=== PATIENT | male | born 1985 | race Caucasian/White ===

== ENCOUNTER 2018-03-23 11:37 | Inpatient (IN) | payer BC ==
[~2018-03-23] VITALS: Ht 170.2 cm; Wt 90.9 kg
--- NOTE | ~2018-03-23 | EC ---
PATIENT:CRISTINE COLES DATE OF SERVICE: 03/23/18 SEX: M MEDICAL RECORD: [id number] DATE OF : [birth year] LOCATION:D.M2 D.211 AGE OF PATIENT: 32 ADMISSION DATE: 03/23/18 REFERRING PHYSICIAN: INTERPRETING PHYSICIAN: NATALYA LÓPEZ MD ECHOCARDIOGRAM REPORT ECHO CHARGES 4 ECHO COMPLETE Date: 03/23/18 CLINICAL DIAGNOSIS: SOB, CP ECHOCARDIOGRAPHIC MEASUREMENTS (adult normal given) AC root (d.<3.7cm) 3.0 cm LV Septum d (<1.2 cm> 0.7 cm Valve Excursion 2.3 cm LV Septum (systole) 1.4 cm Left Atria (s.<4.0cm> 3.6 cm LVPW d(<1.2cm) 0.5 cm RV (d.<2.3cm) 3.1 cm LVPW (sytole) 1.0 cm LV diastole(<5.6CM) 5.3 cm MV E-F(>70mm/sec) cm LV systole 3.9 cm LVOT Diameter 2.1 cm MV exc.(>10mm) cm Est.ejection fraction (50-75%) % DOPPLER: LVIT cm/sec A 68 cm/sec E 92 cm/sec LA cm/sec RVSP 28.6 mmHg LVOT 121 cm/sec AOP1/2T m/s Asc. Ao 143 cm/sec RVOT 68 cm/sec RA cm/sec PA 75 cm/sec AV Gradient Peak 8.2 mmHg AV Mean 4.9 mmHg AV Area 3.3 cm MV Gradient Peak 3.8 mmHg MV Mean 1.9 mmHg MV Area cm COMMENTS: Linter Tender: Lorin SAUCEDALAVELLE LIDIA Film Editor: 1 Dr. López TAPE# PACS Pericardial Effusion N DATE OF SERVICE: 03/23/2018 ECHOCARDIOGRAM DATE OF SERVICE: 03/23/2018 FINDINGS: 1. Left ventricular chamber size is within normal limits. Left ventricular systolic function is normal. Overall ejection fraction estimated at 60%. 2. Left atrium is within normal limits. Right atrium and right ventricle ECHOCARDIOGRAM REPORT [id number] CRISTINE COLES chamber sizes are mildly dilated. 3. Valvular structures have normal structure and motion. 4. Doppler interrogation only reveals mild tricuspid regurgitation, no other valvular insufficiency or stenosis. Pulmonary systolic pressure is normal at 28 mmHg. 5. No evidence of pericardial effusion or left ventricular thrombus. TRANSINT:[id number] Voice Confirmation ID: [id number] DOCUMENT ID: [id number] NATALYA LÓPEZ MD at 1439 CC: [id number] DICTATION DATE: 03/24/18 1016 CANDY COUNTER CLERK: 03/24/18 1031 ADM IN [facility] [address] [id number]
[2018-03-23 12:06] LABS: BASOPHILS 0.2 % (0-2); EOSINOPHILS 0 % (0-7); HEMOGLOBIN 15.5 g/dL (13.5-17.5); IMMATURE GRANULOCYTES 0.1 % (0-5); LYMPHOCYTES 8.2 % (15-50); MCH 31.3 pg (26.0-34.0); MCHC 35.2 g/dL (31.0-37.0); MCV 88.7 fL (80.0-100.0); MEAN PLATELET VOLUME 9.8 fL (7.4-10.4); NEUTROPHILS 90.5 % (40-80); PLATELET COUNT 228 10x3/uL (130-400); RBC 4.96 10x6/uL (4.20-6.10); RDW 12.7 % (11.5-14.5); WBC 9.6 10x3/uL (4.8-10.8)
[2018-03-23 12:19] LABS: INR 1.07 (0.85-1.17); PROTIME 13.5 SECONDS (11.6-15.0)
[2018-03-23 12:21] LABS: ALBUMIN 4.4 g/dL (3.4-5.0); ALKALINE PHOSPHATASE 63 U/L (46-116); ALT (SGPT) 28 U/L (10-68); BILIRUBIN - TOTAL 0.51 mg/dL (0.2-1.3); CALC OSMOLALITY 273 mosm/kg (275-300); CARBON DIOXIDE 24.4 mmol/L (21.0-32.0); CHLORIDE - SERUM 100 mmol/L (98-107); CREATININE - SERUM 1.1 mg/dL (0.6-1.3); GLUCOSE 181 mg/dL (74-106); POTASSIUM - SERUM 4.4 mmol/L (3.5-5.1); PROTEIN - SERUM 7.5 g/dL (6.4-8.2); SODIUM 134 mmol/L (136-145); UREA NITROGEN 15 mg/dL (7-18); eGFR NON AFRICAN AMERICAN 83 mL/min (90-120)
[2018-03-23 12:36] LABS: D-DIMER-QUANTITATIVE < 0.27 ug/mLFEU (0.20-0.54)
[2018-03-23 15:24] VITALS: BP 127/69; Ht 170.2 cm; Wt 90.9 kg
[2018-03-23 15:53] VITALS: BP 136/71
[2018-03-23 23:50] VITALS: BP 135/79
[2018-03-24 05:15] LABS: BASOPHILS 0 % (0-2); EOSINOPHILS 0 % (0-7); HEMATOCRIT 44.7 % (42.0-54.0); HEMOGLOBIN 15.7 g/dL (13.5-17.5); IMMATURE GRANULOCYTES 0.3 % (0-5); LYMPHOCYTES 7.4 % (15-50); MCHC 35.1 g/dL (31.0-37.0); MCV 88.3 fL (80.0-100.0); MEAN PLATELET VOLUME 10.5 fL (7.4-10.4); MONOCYTES 3.8 % (2-11); NEUTROPHILS 88.5 % (40-80); PLATELET COUNT 273 10x3/uL (130-400); RBC 5.06 10x6/uL (4.20-6.10); RDW 12.7 % (11.5-14.5)
[2018-03-24 05:22] LABS: WBC 13.8 10x3/uL (4.8-10.8)
[2018-03-24 05:40] LABS: ALBUMIN 4.2 g/dL (3.4-5.0); ALKALINE PHOSPHATASE 61 U/L (46-116); ALT (SGPT) 28 U/L (10-68); BILIRUBIN - TOTAL 0.38 mg/dL (0.2-1.3); CALC OSMOLALITY 279 mosm/kg (275-300); CALCIUM 9.4 mg/dL (8.5-10.1); CHLORIDE - SERUM 103 mmol/L (98-107); CREATININE - SERUM 1.1 mg/dL (0.6-1.3); GLUCOSE 148 mg/dL (74-106); POTASSIUM - SERUM 4.1 mmol/L (3.5-5.1); PROTEIN - SERUM 7.5 g/dL (6.4-8.2); SODIUM 138 mmol/L (136-145); UREA NITROGEN 14 mg/dL (7-18); eGFR NON AFRICAN AMERICAN 83 mL/min (90-120)
[2018-03-24 07:09] VITALS: BP 127/75
[2018-03-24 09:04] VITALS: BP 127/58
[2018-03-24 11:26] VITALS: BP 119/64
[2018-03-24 15:47] VITALS: BP 129/56
[2018-03-24 22:05] VITALS: BP 113/67
[2018-03-25 04:30] LABS: BASOPHILS 0 % (0-2); EOSINOPHILS 0.1 % (0-7); HEMATOCRIT 42.9 % (42.0-54.0); HEMOGLOBIN 14.8 g/dL (13.5-17.5); IMMATURE GRANULOCYTES 0.3 % (0-5); LYMPHOCYTES 18.5 % (15-50); MCH 30.8 pg (26.0-34.0); MCHC 34.5 g/dL (31.0-37.0); MCV 89.4 fL (80.0-100.0); MEAN PLATELET VOLUME 10.2 fL (7.4-10.4); MONOCYTES 7.1 % (2-11); PLATELET COUNT 254 10x3/uL (130-400); RDW 12.8 % (11.5-14.5); WBC 10.9 10x3/uL (4.8-10.8)
[2018-03-25 05:02] LABS: ALBUMIN 3.7 g/dL (3.4-5.0); ALKALINE PHOSPHATASE 52 U/L (46-116); ALT (SGPT) 30 U/L (10-68); BILIRUBIN - TOTAL 0.49 mg/dL (0.2-1.3); CALC OSMOLALITY 275 mosm/kg (275-300); CALCIUM 9.1 mg/dL (8.5-10.1); CARBON DIOXIDE 27.3 mmol/L (21.0-32.0); CHLORIDE - SERUM 103 mmol/L (98-107); CREATININE - SERUM 1.2 mg/dL (0.6-1.3); GLUCOSE 107 mg/dL (74-106); POTASSIUM - SERUM 3.9 mmol/L (3.5-5.1); PROTEIN - SERUM 6.6 g/dL (6.4-8.2); SODIUM 138 mmol/L (136-145); UREA NITROGEN 13 mg/dL (7-18); eGFR NON AFRICAN AMERICAN 75 mL/min (90-120)
[2018-03-25 06:16] VITALS: BP 101/55
[2018-03-25 08:39] VITALS: BP 119/84
[2018-03-25] MEDS ORDERED: ELIQUIS5 MG PO (09:53)
[2018-03-25 10:47] VITALS: BP 98/44
[2018-03-25 12:19] LABS: ACLA - IGG AB 15 GPL U/mL (0-14); ACLA - IGM AB <9 MPL U/mL (0-12)
[2018-03-26 08:19] LABS: PROTEIN S - FREE 136 % (57-157); PROTEIN S - TOTAL 86 % (60-150)
[2018-03-26 09:18] LABS: LUPUS - INTERPRETATION Comment: (()); LUPUS - THROMBIN TIME 20.5 sec (0.0-23.0); LUPUS - dRVVT 31.5 sec (0.0-47.0); PTT-LA 41.6 sec (0.0-51.9)
[2018-03-26 11:21] LABS: PROTEIN S - FREE 138 % (57-157); PROTEIN S - FUNCTIONAL 120 % (63-140); PROTEIN S - TOTAL 87 % (60-150)
[2018-03-28 14:09] LABS: PROTEIN C - ANTIGEN 113 % (60-150); PROTEIN C - FUNCTIONAL 130 % (73-180)
[2018-03-30 03:12] LABS: FACTOR II DNA ANALYSIS Negative (())
== END 2018-03-25 13:25 | disposition home or self-care (01) | DRG 176 ==
LOC: D.ER 11:37 → D.EDHOLD 13:15 → D.M2 13:15
PROVIDERS: Emergency Medicine; Family Medicine; Internal Medicine Pulmonary Disease
DX: I26.99 Other pulmonary embolism without acute cor pulmonale (principal); Z87.820 Personal history of traumatic brain injury

== ENCOUNTER 2018-08-04 09:37 | Emergency (ER) | payer BC ==
[~2018-08-04] VITALS: Ht 170.2 cm; Wt 90.9 kg
[~2018-08-04 09:37] MED LIST: ELIQUIS5 MG PO
[2018-08-04 09:43] VITALS: Ht 170.2 cm; Wt 90.9 kg
[2018-08-04] MEDS ORDERED: HYDROCODON-ACE1 EA10 PO (10:36)
[2018-08-04] MEDS ORDERED: CYCLOBENZAPRINE10 MG PO (10:36)
[2018-08-04 11:48] VITALS: BP 125/77
== END 2018-08-04 11:45 | disposition home or self-care (01) ==
LOC: D.ER 09:37
DX: M54.5 Low back pain (principal)

== ENCOUNTER → 2018-08-12 10:04 | Outpatient (CLI) | payer BC ==
[2018-08-04 09:43] VITALS: BMI 31.4
[~2018-08-12 10:04] MED LIST changes: +CYCLOBENZAPRINE10 MG PO; +HYDROCODON-ACE1 EA10 PO
== END | disposition home or self-care (01) ==
LOC: D.MRI 10:04
DX: M54.5 Low back pain (principal)

== ENCOUNTER 2018-09-25 22:08 | Emergency (ER) | payer BC ==
[~2018-09-25] VITALS: Ht 185.4 cm; Wt 95.5 kg
[2018-09-25 22:12] VITALS: Ht 185.4 cm; Wt 95.5 kg
[2018-09-25 23:04] VITALS: BP 136/78
== END 2018-09-25 23:03 | disposition home or self-care (01) ==
LOC: D.ER 22:08
DX: S01.01XA Laceration without foreign body of scalp, initial encounter (principal); W22.8XXA Striking against or struck by other objects, initial encounter; Y93.89 Activity, other specified; Y92.89 Other specified places as the place of occurrence of the external cause

== ENCOUNTER 2019-06-30 09:05 | Emergency (ER) | payer MEDICAID ==
[~2019-06-30] VITALS: Ht 185.4 cm; Wt 90.9 kg
[2019-06-30 09:14] VITALS: Ht 185.4 cm; Wt 90.9 kg
[2019-06-30 09:33] LABS: BASOPHILS 0.3 % (0-2); EOSINOPHILS 0.5 % (0-7); HEMATOCRIT 44.9 % (42.0-54.0); HEMOGLOBIN 15.7 g/dL (13.5-17.5); IMMATURE GRANULOCYTES 0.3 % (0-5); LYMPHOCYTES 23.1 % (15-50); MCH 31.2 pg (26.0-34.0); MCV 89.3 fL (80.0-100.0); MEAN PLATELET VOLUME 9.2 fL (7.4-10.4); MONOCYTES 7.7 % (2-11); NEUTROPHILS 68.1 % (40-80); PLATELET COUNT 283 10x3/uL (130-400); RBC 5.03 10x6/uL (4.20-6.10); RDW 12.8 % (11.5-14.5); WBC 6.2 10x3/uL (4.8-10.8)
[2019-06-30 10:00] LABS: CALC OSMOLALITY 280 mosm/kg (275-300); CALCIUM 9.1 mg/dL (8.5-10.1); CARBON DIOXIDE 26.5 mmol/L (21.0-32.0); CHLORIDE - SERUM 105 mmol/L (98-107); CREATININE - SERUM 1.2 mg/dL (0.6-1.3); GLUCOSE 89 mg/dL (74-106); POTASSIUM - SERUM 4.1 mmol/L (3.5-5.1); SODIUM 141 mmol/L (136-145); UREA NITROGEN 14 mg/dL (7-18); eGFR NON AFRICAN AMERICAN 75 mL/min (90-120)
[2019-06-30 10:10] LABS: ALBUMIN 3.9 g/dL (3.4-5.0); ALKALINE PHOSPHATASE 67 U/L (46-116); ALT (SGPT) 40 U/L (10-68); BILIRUBIN - TOTAL 0.28 mg/dL (0.2-1.3)
[2019-06-30 11:15] VITALS: BP 125/77
[2019-06-30] MEDS ORDERED: STERAPRED 5MG 125 MG PO (11:28)
== END 2019-06-30 11:58 | disposition home or self-care (01) ==
LOC: D.ER 09:05
PROVIDERS: Emergency Medicine
DX: R07.81 Pleurodynia (principal)

== ENCOUNTER 2020-01-30 22:59 | Inpatient (IN) | payer MEDICAID ==
[~2020-01-30] VITALS: Ht 185.4 cm; Wt 102.1 kg
[~2020-01-30 22:59] MED LIST changes: +STERAPRED 5MG 125 MG PO
[2020-01-31 01:17] LABS: BASOPHILS 0.2 % (0-2); EOSINOPHILS 0.3 % (0-7); HEMATOCRIT 46.6 % (42.0-54.0); HEMOGLOBIN 15.9 g/dL (13.5-17.5); IMMATURE GRANULOCYTES 0.2 % (0-5); LYMPHOCYTES 25.2 % (15-50); MCH 30.3 pg (26.0-34.0); MCHC 34.1 g/dL (31.0-37.0); MCV 88.9 fL (80.0-100.0); MONOCYTES 5.1 % (2-11); PLATELET COUNT 313 10x3/uL (130-400); RBC 5.24 10x6/uL (4.20-6.10); RDW 13.3 % (11.5-14.5); WBC 9.3 10x3/uL (4.8-10.8)
[2020-01-31 01:39] LABS: ANION GAP 15.6 mmol/L (8-16); CREATININE - SERUM 1.3 mg/dL (0.6-1.3); POTASSIUM - SERUM 3.6 mmol/L (3.5-5.1)
[2020-01-31 01:45] LABS: ALBUMIN 4.5 g/dL (3.4-5.0); BILIRUBIN - TOTAL 0.28 mg/dL (0.2-1.3); MAGNESIUM - SERUM 2.4 mg/dL (1.8-2.4); PROTEIN - SERUM 7.7 g/dL (6.4-8.2)
[2020-01-31 02:40] VITALS: BP 122/87; BMI 29.7
--- NOTE | 2020-01-31 02:59 | NUR ---
HIBACLENS SHOWER PERFORMED WITH ASSISTANCE OF HIS MOTHER.
--- NOTE | 2020-01-31 03:00 | NUR ---
ALL CONSENTS SIGNED FOR [facility] PROCEDURE. NPO STATUS IN PLACE.
--- NOTE | 2020-01-31 03:00 | NUR ---
ADMISSION ASSESSMENT AND HISTORY COMPLETE.
--- NOTE | 2020-01-31 06:00 | NUR ---
PT TAKEN TO SURGERY VIA BED.
[2020-01-31 07:59] VITALS: BP 130/83
--- NOTE | 2020-01-31 12:00 | NUR ---
RECEIVED TO ROOM 1212 VIA WC FROM MED SURG. A/O X3. AT BEDSIDE. DENIES NEEDS. DRESSING TO RIGHT WRIST DRY AND INTACT. SLING IN PLACE TO RIGHT ARM. DENIES NEEDS.
[2020-01-31 12:42] VITALS: BP 143/80
--- NOTE | 2020-01-31 15:41 | NUR ---
REQUESTED AND GIVEN 30MG TORADOL SLOW IVP FOR C/O RIGHT WRIST PAIN LEVEL 8. WILL MONITOR.
[2020-01-31 16:11] VITALS: BP 122/71
--- NOTE | 2020-01-31 16:31 | NUR ---
RESTING QUIETLY IN BED. DENIES NEEDS. REPORTS GOOD PAIN RELIEF WITH USE OF TORADOL. DENIES NEEDS. IN ROOM.
--- NOTE | 2020-01-31 17:19 | NUR ---
ATE VERY LITTLE OF SUPPER. STATED HE WAS GONNA ORDER OUT. REQUESTED AND GIVNE ONE OXY 5MG PO FOR C/O RIGHT ARM PAIN LEVEL 7. WILL MONITOR.
--- NOTE | 2020-01-31 17:46 | NUR ---
AT BEDSIDE. DENIES NEEDS. NO CHANGES NOTED.
[2020-01-31 19:30] VITALS: BP 134/66
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
--- NOTE | 2020-01-31 20:15 | NUR ---
ICE PACKS DELIVERED TO PT FOR HIS ARM.
[2020-02-01 03:50] VITALS: BP 122/53
--- NOTE | 2020-02-01 03:50 | NUR ---
VS TAKEN. FRESH ICE PACK PLACED ON RIGHT SAMMY WRAP OVER INCISION. NO NEEDS OR C/O AT THIS TIME.
[2020-02-01 07:07] LABS: HEMATOCRIT 42.4 % (42.0-54.0); HEMOGLOBIN 14.3 g/dL (13.5-17.5)
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
--- NOTE | 2020-02-01 08:20 | NUR ---
PT ALERT X 4. BREATH SOUNDS CLEAR BILAT. IV TO LEFT FOREARM, PATENT, DRESSING CDI. SAMMY TO RIGHT FOREARM CDI. PT REPORTING PAIN OF 5/10, MEDICATED PER ORDERS, WILL CONTINUE TO MONITOR. MEPILEX TO LEFT BUTTOCKS DUE TO HEMATOMA. BED LOW, CALL LIGHT IN REACH. NO OTHER NEEDS AT THIS TIME.
[2020-02-01 08:44] VITALS: BP 116/54
[2020-02-01 12:23] VITALS: BP 113/587
[2020-02-01] MEDS ORDERED: OXYCODONE HCL5 M1 PO (13:33)
[2020-02-01] MEDS ORDERED: KEFLEX500 MG PO (13:33)
[2020-02-01] MEDS ORDERED: VISTARIL50 MG PO (13:33)
[2020-02-01 14:41] VITALS: Ht 185.4 cm; Wt 102.1 kg
[2020-02-01 15:31] VITALS: BP 120/56
--- NOTE | 2020-02-01 19:30 | NUR ---
ALERT RESTING IN BED RIGHT ARM WITH SAMMY WRAP C/D/I ELEVATED ON PILLOWS, SEE SHIFT ASSESSMENT, CALL LIGHT IN REACH, MEDICATED FOR C/O PAIN TO RIGHT ARM
[2020-02-01 20:00] VITALS: BP 113/51
[2020-02-02 05:45] VITALS: BP 111/48
[2020-02-02 06:15] LABS: HEMATOCRIT 41.2 % (42.0-54.0); HEMOGLOBIN 13.7 g/dL (13.5-17.5)
--- NOTE | 2020-02-02 07:10 | NUR ---
PT IS RESTING IN BED WITH EYES OPEN. RESPIRATIONS ARE EVEN AND UNLABORED. PT FAMILY MEMBER AT BEDSIDE. DRESSING TO RIGHT ARM NOTED. PT DENIES PRESENCE OF NUMBNESS/TINGLING. PT IS ABLE TO "WIGGLE" FINGERS. PT REPORTS PAIN 5/10 TO RUE. WILL ADDRESS. SEE EMAR. PT DENIES PRESENCE OF N/V. BED IS IN THE LOWEST POSITION. CALL LIGHT AND BEDSIDE TABLE ARE WITHIN REACH. SIDE RAILS X 2. PT DENIES FURTHER NEEDS. WILL CONT TO MONITOR.
[2020-02-02] MEDS ORDERED: OXYCODONE HCL10 MG PO (07:29)
[2020-02-02 07:42] VITALS: BP 105/42
--- NOTE | 2020-02-02 10:08 | NUR ---
ALL DISCHARGE INSTRUCTIONS COVERED WITH PT. PRINTED RX X 3 GIVEN TO PT FAMILY MEMBER. PIV TO LEFT FA REMOVED WITH CATHETER TIP INTACT. DRESSING APPLIED. PT DENIES FURTHER QUESTIONS/CONCERNS/NEEDS. PT REQUESTS TO AMBULATE FREELY TO FRONT OF HOSPITAL AND WAIT FOR TRANSPORTATION. PT AMBULATES WITHOUT DIFFICULTY AND DENIES PRESENCE OF PAIN/N/V/DIZZINESS/NUMBNESS/TINGLING AT THIS TIME. PT AMBULATES FROM ROOM AND THANKS THIS NURSE FOR CARE GIVEN DURING THIS SHIFT. ALL SIGNED DISCHARGE PAPERS PLACED IN PT CHART.
== END 2020-02-02 10:54 | disposition home or self-care (01) | DRG 512 ==
LOC: D.ER 22:59 → D.MS 01-31 01:10 → OBSVTIME 01-31 01:10 → D.M3 01-31 12:52
PROVIDERS: Family Medicine; ADMIT Orthopaedic Surgery; ATTEND Orthopaedic Surgery
PROC: 0PSK04Z Reposition Right Ulna with Internal Fixation Device, Open Approach (ICD-10-PCS; principal; 2020-01-31 05:23)
DX: S52.201B Unspecified fracture of shaft of right ulna, initial encounter for open fracture type I or II (principal); V86.99XA Unspecified occupant of other special all-terrain or other off-road motor vehicle injured in nontraffic accident, initial encounter